=== PATIENT | male | born 2000 | race Caucasian/White ===

== ENCOUNTER 2020-11-27 00:41 | Emergency (ER) | payer BC ==
[2020-11-27] MEDS ORDERED: LORazepam 2 MG/ML SDV IV ONE (01:25)
--- NOTE | 2020-11-27 01:25 | EDM.PDOCBH ---
ED HPI GENERAL MEDICAL PROBLEM - General Chief Complaint: Behavioral/Psych Stated Complaint: PT TOOK METH Time Seen by Provider: 11/27/20 01:10 Source of Information: Reports: Patient History Limitations: Reports: No Limitations - History of Present Illness INITIAL COMMENTS - FREE TEXT/NARRATIVE: 20-year-old male presents to the ED feeling agitated and reviewed he reports in his own words somewhat delirious. Patient has been using methamphetamines for about 18 months. He uses it mostly intravenously when he can get at. He is taken it orally as well which is what he did 2 days ago. We opened the package and just walked it down. He has snorted it as well. He has never used cocaine. He uses marijuana and hashish recreationally. Does use alcohol rarely. At present he is feeling agitated and unable to sleep. States he is having some paranoid ideation with perhaps some very mild auditory hallucinations. He is unable to sleep for the last 3 days or longer. He has not eaten anything for the last 2 days. No nausea vomiting mild diarrhea. He does not know if he has hepatitis C from intravenous drug use. Denies any fever or chills. He appears alert and oriented at this time. He admits that he has intermittent suicidal ideation but is not suicidal at this time. He has never developed a plan of how he would end his life. Onset: Gradual Onset Date: 11/25/20 (Time started after last methamphetamine use which she took orally) Duration: Day(s):, Getting Worse Location: Reports: Generalized (Generalized agitation inability to sleep or relax. Paranoid ideation perhaps some mild auditory hallucinations. No sense of self-harm although he has had some suicidal ideation in the past he is currently not suicidal.) Quality: Reports: Other (Primarily agitation and restlessness from methamphetamine use.) Severity: Moderate Improves with: Reports: None Worsens with: Reports: Other (Tries to sleep or rest.) Context: Reports: Other (Chronic methamphetamine use). Denies: Activity ( If he is preoccupied by doing some other activity), Exercise, Lifting, Sick Contact, Trauma Associated Symptoms: Reports: Loss of Appetite, Malaise, Other (Mild diarrhea. Inability to sleep). Denies: Confusion, Chest Pain, Cough, cough w sputum, Diaphoresis, Fever/Chills, Headaches, Nausea/Vomiting, Rash, Seizure, Shortness of Breath, Syncope Treatments [employer]: Reports: Other (see below) (None.) - Related Data Allergies Allergy/AdvReac Type Severity Reaction Status Date / Time No Known Allergies Allergy Verified 11/27/20 00:52 Home Meds: Home Meds . [No Known Home Meds] 11/27/20 [History] Past Medical History - Past Health History Medical/Surgical History: Denies Medical/Surgical History - Infectious Disease History Infectious Disease History: Reports: Novel Coronavirus Social & Family History - Tobacco Use Tobacco Use Status *Q: Never Tobacco User - Recreational Drug Use Recreational Drug Type: Reports: Methamphetamine Recreational Drug Use Frequency: Binges - Living Situation & Occupation Living situation: Reports: Single ED ROS GENERAL - Review of Systems Review Of Systems: See Below Constitutional: Reports: Malaise, Weakness, Fatigue, Decreased Appetite, Weight Loss. Denies: Fever, Chills HEENT: Reports: No Symptoms Respiratory: Reports: No Symptoms Cardiovascular: Reports: No Symptoms Endocrine: Reports: Fatigue GI/Abdominal: Reports: Diarrhea (Diarrhea 2-3 times daily last 2 days.), Decreased Appetite : Reports: No Symptoms Musculoskeletal: Reports: No Symptoms Skin: Reports: No Symptoms Neurological: Reports: Weakness. Denies: Confusion, Dizziness, Headache, Numbness, Pre-Existing Deficit, Seizure, Syncope, Tingling, Tremors, Trouble Speaking, Difficulty Walking, Gait Disturbance Psychiatric: Reports: Agitation, Anxiety, Hallucinations, Mood Lability, Suicidal Ideation, Other (Mild auditory hallucinations.). Denies: Homicidal Ideation Hematologic/Lymphatic: Reports: No Symptoms Immunologic: Reports: No Symptoms ED EXAM, BEHAVIORAL HEALTH - Physical Exam Exam: See Below Exam Limited By: No Limitations General Appearance: Alert, WD/WN, Moderate Distress, Other (On room air.) Eye Exam: Bilateral Eye: Normal Inspection, PERRL (No scleral icterus or blepharal pallor.) Throat/Mouth: Normal Inspection, Normal Lips, Normal Oropharynx, Other Head: Atraumatic (Is moist lips are chapped), Normocephalic, Other Neck: Normal Inspection (No outward signs of head or facial trauma), Supple, Non-Tender, Full Range of Motion. No: Lymphadenopathy (L), Lymphadenopathy (R) Respiratory/Chest: No Respiratory Distress, Lungs Clear, Normal Breath Sounds, No Accessory Muscle Use Cardiovascular: Normal Peripheral Pulses, Regular Rate, Rhythm, No Edema, No Gallop, No Murmur, No Rub GI/Abdominal: Normal Bowel Sounds, Soft, Non-Tender, No Organomegaly, No Abnormal Bruit, No Mass, Pelvis Stable Back Exam: Normal Inspection, Full Range of Motion. No: CVA Tenderness (L), CVA Tenderness (R) Extremities: Normal Inspection, Normal Range of Motion, Non-Tender, No Pedal Edema Neurological: Alert, CN II-XII Intact, Normal Cognition, Normal Gait, Normal Reflexes, No Motor/Sensory Deficits, Oriented x 3 Psychiatric: Normal Cognition, Normal Mood, Oriented, Agitated, Paranoid Thoughts (Aims to have paranoid ideation at times but not at present). No: Suicidal Thoughts, Tangential Thoughts, Auditory Hallucinations, Visual Hallucin ations, Grandiose Thoughts, Pressured Speech, Threatening Behavior, Other Skin Exam: Warm (Agitated. Appears tired), Dry, Intact, Normal color, No rash COURSE, BEHAVIORAL HEALTH COMP - Course Vital Signs: Last Vital Signs Temp 36.2 C 11/27/20 00:49 Pulse 102 H 11/27/20 00:49 Resp 16 11/27/20 00:49 BP 130/80 11/27/20 00:49 Pulse Ox 100 11/27/20 00:49 Orders, Labs, Meds: Laboratory Tests 11/27/20 Range/Units 03:41 Urine Opiates Screen Negative (IVSVUU=292) Ur Buprenorphine Scrn Negative (CUTOFF=10) Ur Oxycodone Screen Negative (EQT8LQ=006) Urine Methadone Screen Negative (HPU6VZ=175) Ur Propoxyphene Screen Negative (SHTZME=161) Ur Barbiturates Screen Negative (CDNKPV=997) Ur Tricyclics Screen Negative (ECHHCW=205) Ur Phencyclidine Scrn Negative (CUTOFF=25) Ur Amphetamine Screen Presumptive positive H (KYSUUQ=702) U Methamphetamines Scrn Presumptive positive H (PPXAWY=144) U Benzodiazepines Scrn Negative (RFLQHY=608) U Cocaine Metab Screen Negative (BIJOTX=146) U Marijuana (THC) Screen Negative (CUTOFF=50) Medications Discontinued Medications Generic Name Dose Route Start Last Admin Trade Name Freq PRN Reason Stop Dose Admin Dextrose/Lactated Ringer's 1,000 mls @ 500 mls/hr 11/27/20 01:30 Dextrose 5%-Lactated Ringers IV ASDIRECTED HARLAN Lorazepam 1.5 mg 11/27/20 01:25 Ativan IV 11/27/20 01:26 ONETIME ONE Lorazepam 2 mg 11/27/20 02:09 11/27/20 02:09 Ativan IM 11/27/20 02:10 2 mg ONETIME ONE Administration Re-Assessment/Re-Exam: 20-year-old male presents to the ED feeling agitated anxious and restless notes with inability to sleep after last use of oral methamphetamines which he ingested orally 2 days ago or more. He states he has a chronic use of methamphetamines for the last 18 months. Used a lot of methamphetamines over the holidays. He admits to intermittent suicidal ideation but currently is not suicidal or has never developed a definitive plan of how he would end his life. There are some consideration of paranoid ideation and perhaps some very mild auditory hallucinations at times. He uses marijuana and hashish intermittently. Never used cocaine. He has used methamphetamines by all means available i.e. snorted intravenously is his primary mechanism and sometimes he will just ingested which he did last time 2 days ago. He has no control over the dosage or purity of the product that he is taking. Patient does appear tired. He does not appear to be actively hallucinating at this time. Plan IV D5 Ringer's lactate at open. He will be given Ativan 1.5 mg IV. Routine labs to be collected any urine drug screen if one becomes available. Re-Assessment/Re-Exam Date: 11/27/20 (Nurses report that the patient was extremely apprehensive about having an intravenous started. He will therefore be given Ativan [address] of the 1.5 mg IV ordered. Labs will be c urtailed at this time.) Re-Assessment/Re-Exam Time: 03:00 (Patient is still talking to his girlfriend on the phone at this time. He states he does feel better. Not slurring his speech or feeling excessively fatigued from the 2 mg of Ativan IM.) Medical Clearance: 11/27/20 04:30: Urine drug screen is presumptively positive for amphetamines and methamphetamines and nothing else. Patient is sleeping at this time. Tentatively he will be discharged to home once he awakens this morning. Departure - Departure Time of Disposition: 08:00 Disposition: Home, Self-Care 01 Condition: Fair Clinical Impression: Methamphetamine abuse - Discharge Information *PRESCRIPTION DRUG MONITORING PROGRAM REVIEWED*: Not Applicable *COPY OF PRESCRIPTION DRUG MONITORING REPORT IN PATIENT RODRIGUE: Not Applicable Instructions: Amphetamines Use Disorder, Methamphetamines Use Disorder Referrals: PCP,None [Primary Care Provider] - Forms: ED Department Discharge Additional Instructions: Evaluation in the emergency room in the wee hours of the morning today in regards to inability to sleep due to agitation restlessness secondary to stimulant use defect a few days ago. By history you ingested a unknown quantity of methamphetamine orally 2 days ago. Have a history of recurrent use of methamphetamines over the last 18 months. You were therefore treated with intramuscular Ativan 2 mg to alleviate the stimulant effect of amphetamines and allow you to settle enough to get some sleep. Try and have something to eat once you get home this morning and drink plenty of fluids since an IV was not started as per my suggestion in the ED due to lack of venous access. If you wish treatment for amphetamine use disorder please call [facility] which provides alcohol and drug counseling and treatment. The number to call would be [phone]. Sepsis Event Note (ED) - Evaluation Sepsis Screening Result: No Definite Risk
[2020-11-27] MEDS ORDERED: Dextrose 5%-Lactated Ringers 1,000 ML IV SCH (01:30)
[2020-11-27] MEDS ORDERED: LORazepam 2 MG/ML SDV IM ONE (02:09)
== END 2020-11-27 08:09 | disposition home or self-care (01) ==
LOC: JD.ED 00:41
DX: F15.10 Other stimulant abuse, uncomplicated (principal)
CPT/HCPCS: 80306; 96372; 99284; J2060

== ENCOUNTER 2022-02-05 15:23 | Day surgery (SDC) | payer BC ==
[2022-02-05] MEDS ORDERED: Famotidine 20 MG/2 ML SDV IVPUSH ONE (16:30)
[2022-02-05] MEDS ORDERED: Calcium Carbonate 500 MG Tab.Chew PO ONE (16:30)
[2022-02-05] MEDS ORDERED: Haloperidol Lactate 5 MG/ML SDV IVPUSH ONE (16:30)
[2022-02-05] MEDS ORDERED: Ketorolac 15 MG/ML SDV IVPUSH ONE (17:43)
[2022-02-05] MEDS ORDERED: Iopamidol 612 MG/ML 100 ML Bottle IVPUSH ONE (17:49)
[2022-02-05] MEDS ORDERED: Sodium Chloride 0.9% 10 ML Syringe FLUSH ONE (17:49)
[2022-02-05] MEDS ORDERED: Piperacillin/Tazobactam 4.5 GM in Sodium Chloride 0.9% 100 ML IV ONE (18:26)
[2022-02-05] MEDS ORDERED: Sodium Chloride 0.9% 1,000 ML IV ONE (18:27)
[2022-02-05] MEDS ORDERED: Morphine 4 MG/ML Syringe IVPUSH ONE (18:48)
[2022-02-05] MEDS ORDERED: Ondansetron 4 MG/2 ML SDV IVPUSH ONE (18:48)
[2022-02-05] MEDS ORDERED: Ondansetron 4 MG/2 ML SDV ONE (20:08)
[2022-02-05] MEDS ORDERED: Rocuronium 50 MG/5 ML Vial ONE (20:08)
[2022-02-05] MEDS ORDERED: Lidocaine 1% 4 ML ONE (20:08)
[2022-02-05] MEDS ORDERED: Propofol 200 MG/20 ML SDV ONE (20:08)
[2022-02-05] MEDS ORDERED: Midazolam 1 MG/ML 2 ML SDV ONE (20:08)
[2022-02-05] MEDS ORDERED: fentaNYL 250 MCG/5 ML SDV ONE (20:08)
[2022-02-05] MEDS ORDERED: Lactated Ringers 1,000 ML IV SCH ×2 (20:30→23:15)
[2022-02-05] MEDS ORDERED: Ondansetron 4 MG/2 ML SDV IVPUSH PRN (21:04)
[2022-02-05] MEDS ORDERED: HYDROmorphone 0.5 MG/0.5 ML Syringe IVPUSH PRN (21:04)
[2022-02-05] MEDS ORDERED: fentaNYL 100 MCG/2 ML SDV IVPUSH PRN (21:04)
[2022-02-05] MEDS: Bupivacaine 0.5%/EPINEPHrine 1:200,000 50 ML MDV ONE ×2 (21:09→21:26)
[2022-02-05] MEDS ORDERED: Dexamethasone 4 MG/ML 5 ML MDV ONE (21:38)
[2022-02-05] MEDS ORDERED: Lactated Ringers 1,000 ML ONE (21:39)
[2022-02-05] MEDS: Acetaminophen/HYDROcodone 325-5 MG Tab PO PRN (23:43)
[2022-02-06] MEDS ORDERED: Acetaminophen 325 MG Tab PO PRN (01:53)
[2022-02-06] MEDS ORDERED: Ibuprofen 400 MG Tab PO PRN (01:55)
[2022-02-06] MEDS: Acetaminophen/HYDROcodone 325-5 MG Tab PO PRN (07:35)
== END 2022-02-06 08:15 | disposition home or self-care (01) ==
LOC: JD.ED 15:23 → JD.SDS 19:51 → JD.MS 23:03 → JD.SDS 02-06 08:15
PROVIDERS: ATTEND Surgery
DX: K35.30 Acute appendicitis with localized peritonitis, without perforation or gangrene (principal); F17.210 Nicotine dependence, cigarettes, uncomplicated
CPT/HCPCS: 36415; 44970; 74019; 74177; 80053; 83690; 85025; 96365; 96375; 99285; A9270; J1100; J1630; J1885; J2250; J2270; J2405; J2543; J2704; J2710; J3010; J3490; J7030; J7120; Q9967; 00840; 99140

== ENCOUNTER 2022-03-04 05:20 | Emergency (ER) | payer BC ==
[2022-03-04] MEDS ORDERED: Sodium Chloride 0.9% 1,000 ML IV ONE (05:58)
[2022-03-04] MEDS ORDERED: LORazepam 1 MG Tab PO ONE (09:52)
== END 2022-03-04 09:40 | disposition home or self-care (01) ==
LOC: JD.ED 05:20
DX: F15.10 Other stimulant abuse, uncomplicated (principal); N28.9 Disorder of kidney and ureter, unspecified; Z86.16 Personal history of COVID-19; Z87.891 Personal history of nicotine dependence
CPT/HCPCS: 36415; 80053; 80143; 80179; 80307; 83735; 85025; 93005; 99284; J7030; 93010; 99283

== ENCOUNTER 2022-03-04 10:00 | Emergency (ER) | payer BC ==
[2022-03-04] MEDS ORDERED: LORazepam 1 MG Tab PO ONE ×2 (10:21→14:40)
== END 2022-03-04 15:45 | disposition home or self-care (01) ==
LOC: JD.ED 10:00
DX: F15.10 Other stimulant abuse, uncomplicated (principal); Z86.16 Personal history of COVID-19
CPT/HCPCS: 80306; 99284; A9270; 99282

== ENCOUNTER 2022-03-05 12:05 | Emergency (ER) | payer BC | END 2022-03-05 13:03 | disposition home or self-care (01) | LOC: JD.ED 12:05 | DX: S90.464A Insect bite (nonvenomous), right lesser toe(s), initial encounter (principal); S90.465A Insect bite (nonvenomous), left lesser toe(s), initial encounter; F17.210 Nicotine dependence, cigarettes, uncomplicated; Z79.899 Other long term (current) drug therapy; Z90.49 Acquired absence of other specified parts of digestive tract; Z86.16 Personal history of COVID-19; W57.XXXA Bitten or stung by nonvenomous insect and other nonvenomous arthropods, initial encounter | CPT/HCPCS: 99283 ==

== ENCOUNTER 2023-11-08 00:19 | Emergency (ER) | payer BC ==
[2023-11-08 00:58] LABS: BASOPHILS PERCENT AUTO 0.3 % (0.0-1.0); EOSINOPHILS PERCENT AUTO 0.2 % (0.0-6.0); HEMATOCRIT 43.7 % (42.0-52.0); HEMOGLOBIN 15.7 gm/dl (14.0-18.0); IMMATURE GRAN ABSOLUTE AUTO 0.05 K/mm3 (0.00-0.05); IMMATURE GRAN PERCENT AUTO 0.3 % (0.0-0.4); LYMPHOCYTES ABSOLUTE AUTO 1.6 K/mm3 (1.0-4.8); MEAN CORPUSCULAR HEMOGLOBIN 30.7 pg (28.0-32.0); MEAN CORPUSCULAR HGB CONC 35.9 g/dl (32.0-36.0); MEAN CORPUSCULAR VOLUME 85.4 fl (83.0-99.0); MEAN PLATELET VOLUME 8.7 fl (9.4-12.4); MONOCYTES ABSOLUTE AUTO 0.8 K/mm3 (0.0-0.8); MONOCYTES PERCENT AUTO 5.7 % (0.0-8.0); NEUTROPHILS ABSOLUTE AUTO 12.1 K/mm3 (1.8-7.7); NEUTROPHILS PERCENT AUTO 82.5 % (41.0-71.0); PLATELET COUNT,PLT 286 K/mm3 (150-400); RED BLOOD CELL COUNT 5.12 M/mm3 (4.52-5.90); WHITE BLOOD CELL COUNT,WBC 14.63 K/mm3 (3.9-11.3)
[2023-11-08 01:19] LABS: BARBITURATE SCREEN,URINE NEGATIVE (CUTOFF=200); BENZODIAZEPINES SCREEN,URINE NEGATIVE (CUTOFF=150); BUPRENORPHINE SCREEN,URINE NEGATIVE (CUTOFF=10); METHADONE SCREEN, URINE NEGATIVE (CUT0FF=200); METHAMPHETAMINES SCREEN, URINE PRESUMPTIVE POSITIVE (CUTOFF=500); OXYCODONE SCREEN,URINE NEGATIVE (CUT0FF=100); THC SCREEN,URINE 20 NG/ML PRESUMPTIVE POSITIVE (CUTOFF=50)
[2023-11-08 01:21] LABS: AMPHETAMINES SCREEN, URINE NEGATIVE (CUTOFF=500)
[2023-11-08 01:26] LABS: ALBUMIN 4.8 g/dl (3.4-5.0); ANION GAP 19.4 (5-15); BUN/CREATININE RATIO 15.7 (14-18); CALCIUM 9.7 mg/dL (8.5-10.1); CREATININE 1.4 mg/dL (0.7-1.3); EST CRCL DRUG DOSING (CG) 78.97 mL/min; POTASSIUM,K 3.4 mEq/L (3.5-5.1); PROTEIN TOTAL,TP 8.6 g/dl (6.4-8.2)
[2023-11-08 01:27] LABS: A/G RATIO 1.3 (1-2); BILIRUBIN TOTAL 2.3 mg/dL (0.2-1.0); TSH 3.356 uIU/mL (0.358-3.74)
== END 2023-11-08 01:42 ==
LOC: JD.ED 00:19
DX: F15.10 Other stimulant abuse, uncomplicated (principal); Z86.16 Personal history of COVID-19
CPT/HCPCS: 36415; 80053; 80143; 80179; 80306; 80307; 84443; 85025; 99285

== ENCOUNTER 2023-11-08 14:06 | Emergency (ER) | payer BC ==
[2023-11-08] MEDS ORDERED: OLANZapine 5 MG Tab PO ONE (14:49)
== END 2023-11-08 15:40 | disposition home or self-care (01) ==
LOC: JD.ED 14:06
DX: Z04.6 Encounter for general psychiatric examination, requested by authority (principal); Z86.16 Personal history of COVID-19; Z90.49 Acquired absence of other specified parts of digestive tract
CPT/HCPCS: 99283; A9270